=== PATIENT | female | born 1965 | race African-American/Black ===

== ENCOUNTER 2022-04-29 21:08 | Emergency (ER) | payer SELFPAY ==
[~2022-04-29] VITALS: Ht 160 cm; Wt 106.9 kg
[2022-04-29] MEDS ORDERED: [UNRECOGNIZED DRUG - OTHER] PO (21:24)
[2022-04-29] MEDS ORDERED: CAND8TAB10 PO (21:24)
[2022-04-29] MEDS ORDERED: NF-ESOM40C PO (21:24)
[2022-04-29] MEDS ORDERED: RIVA20TA PO (21:24)
--- NOTE | 2022-04-29 21:31 | ED Abdominal Pain ---
General Chief Complaint: Rect Problems Stated Complaint: BLOODY STOOL Nursing Triage Note: C/O LIGHT PINK BLOODY STOOLS X1 DAY. ON XARLATO Source of Information: Patient Exam Limitations: No Limitations History of Present Illness Date Seen by Provider: Apr 29, 2022 Time Seen by Provider: 21:29 Initial Comments Patient is a 56-year-old female who presents ED with bloody stools. Symptoms started yesterday. She reports 2-3 episodes of bright red-pink stool. She notices after a bowel movement in the toilet that looks pink. She is currently on Xarelto with a history of DVT several years ago. History of appendectomy, hysterectomy and C-sections. She had internal hemorrhoids banded 1 year ago. She denies of any dark tarry stool, vomiting, nausea or significant abdominal discomfort. Patient is from [facility]. Recently came to the [facility] to see family. Denies of any chest pain, fever, cough, shortness of breath, sore throat, ear pain, visual changes. Denies of excessive NSAID use. No urinary symptoms. Allergies and Home Medications Allergies Coded Allergies: No Known Drug Allergies (Unverified , 04/29/22) Patient Home Medication List Home Medication List Reviewed: Yes Candesartan Cilexetil (Atacand) 8 Mg Tablet, 8 MG PO, (Reported) Entered as Reported by: TC CHACON on 04/29/222123 Last Action: New Order Esomeprazole Magnesium (Nexium) 40 Mg Cap, 40 MG PO, (Reported) Entered as Reported by: TC CHACON on 04/29/222123 Last Action: New Order Rivaroxaban (Xarelto) 20 Mg Tablet, 20 MG PO, (Reported) Entered as Reported by: TC CHACON on 04/29/222123 Last Action: New Order [Airtal] , 100 MG PO DAILY, (Reported) Entered as Reported by: TC CHACON on 04/29/222123 Last Action: New Order Review of Systems Review of Systems Constitutional: No chills, No diaphoresis EENTM: No Blurred Vision, No Double Vision, No Eye Pain Gastrointestinal: Abdominal Pain; Denies Nausea; Rectal Bleeding; Denies Vomiting Genitourinary: Denies Burning, Denies Discharge Musculoskeletal: No back pain, No joint pain Skin: No change in color, No change in hair/nails Psychiatric/Neurological: Denies Depressed All Other Systems Reviewed Negative Unless Noted: Yes Past Qizwcmj-Kvrcyj-Bfrtcc Hx Patient Social History Tobacco Use?: No Substance use?: No Alcohol Use?: No Pt feels they are or have been: No Past Medical History Surgery/Hospitalization HX: HEMMORHOIDECTOMY, APPY, HYSTERECTOMY, C-SECT DVT, PE, HTN, ARTHRITIS Physical Exam Vital Signs Vital Signs - First Documented 04/29/22 21:24 Temp 36.0 Pulse 102 Resp 18 B/P (MAP) 166/82 (110) Pulse Ox 97 O2 Delivery Room Air Capillary Refill : Less Than 3 Seconds Height/Weight/BMI Height: '" Weight: lbs. oz. kg; 41.00 BMI Method: General Appearance: WD/WN, no apparent distress HEENT: PERRL/EOMI, normal ENT inspection, TMs normal, pharynx normal Neck: non-tender, full range of motion, supple, normal inspection Respiratory: chest non-tender, lungs clear, normal breath sounds, no respiratory distress, no accessory muscle use Cardiovascular: regular rate, rhythm, no edema, no gallop, no JVD Gastrointestinal: normal bowel sounds, non tender, soft, no organomegaly Genital/Rectal: heme positive stool, other (Normal rectal tone. No palpable abscess, obvious hemorrhoids. 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, no motor/sensory deficits, alert, normal mood/affect, oriented x 3 Skin: normal color, warm/dry Progress/Results/Core Measures Results/Orders Lab Results Laboratory Tests Test 04/29/22 21:33 04/29/22 21:39 Range/Units White Blood Count 8.1 4.3-11.0 10^3/uL Red Blood Count 4.67 3.80-5.11 10^6/uL Hemoglobin 11.8 11.5-16.0 g/dL Hematocrit 39 35-52 % Mean Corpuscular Volume 82 80-99 fL Mean Corpuscular Hemoglobin 25 25-34 pg Mean Corpuscular Hemoglobin Concent 31 L 32-36 g/dL Red Cell Distribution Width 17.3 H 10.0-14.5 % Platelet Count 351 130-400 10^3/uL Mean Platelet Volume 10.4 9.0-12.2 fL Immature Granulocyte % (Auto) 0 % Neutrophils (%) (Auto) 54 42-75 % Lymphocytes (%) (Auto) 35 12-44 % Monocytes (%) (Auto) 8 0-12 % Eosinophils (%) (Auto) 2 0-10 % Basophils (%) (Auto) 0 0-10 % Neutrophils # (Auto) 4.4 1.8-7.8 10^3/uL Lymphocytes # (Auto) 2.8 1.0-4.0 10^3/uL Monocytes # (Auto) 0.7 0.0-1.0 10^3/uL Eosinophils # (Auto) 0.2 0.0-0.3 10^3/uL Basophils # (Auto) 0.0 0.0-0.1 10^3/uL Immature Granulocyte # (Auto) 0.0 0.0-0.1 10^3/uL Prothrombin Time 13.6 12.2-14.7 SEC INR Comment 1.0 0.8-1.4 Activated Partial Thromboplast Time 33 24-35 SEC Sodium Level 142 135-145 MMOL/L Potassium Level 4.0 3.6-5.0 MMOL/L Chloride Level 105 98-107 MMOL/L Carbon Dioxide Level 25 21-32 MMOL/L Anion Gap 12 5-14 MMOL/L Blood Urea Nitrogen 10 7-18 MG/DL Creatinine 0.63 0.60-1.30 MG/DL Estimat Glomerular Filtration Rate 104 BUN/Creatinine Ratio 16 Glucose Level 118 H 70-105 MG/DL Calcium Level 9.4 8.5-10.1 MG/DL Corrected Calcium 9.4 8.5-10.1 MG/DL Total Bilirubin 0.3 0.1-1.0 MG/DL Aspartate Amino Transf (AST/SGOT) 11 5-34 U/L Alanine Aminotransferase (ALT/SGPT) 9 0-55 U/L Alkaline Phosphatase 90 40-136 U/L Total Protein 7.9 6.4-8.2 GM/DL Albumin 4.0 3.2-4.5 GM/DL Urine Color YELLOW Urine Clarity CLEAR Urine pH 5.5 5-9 Urine Specific Arabi 1.025 H 1.016-1.022 Urine Protein NEGATIVE NEGATIVE Urine Glucose (UA) NEGATIVE NEGATIVE Urine Ketones NEGATIVE NEGATIVE Urine Nitrite NEGATIVE NEGATIVE Urine Bilirubin NEGATIVE NEGATIVE Urine Urobilinogen 0.2 < = 1.0 MG/DL Urine Leukocyte Esterase NEGATIVE NEGATIVE Urine RBC (Auto) NEGATIVE NEGATIVE Urine RBC 0-2 /HPF Urine WBC NONE /HPF Urine Squamous Epithelial Cells 2-5 /HPF Urine Crystals NONE /LPF Urine Bacteria FEW H /HPF Urine Casts NONE /LPF Urine Mucus SMALL H /LPF Urine Culture Indicated YES My Orders Orders - RACIEL TELLES Cbc With Automated Diff (04/29/22 21:26) Comprehensive Metabolic Panel (04/29/22:) Partial Thromboplastin Time (04/29/22:) Protime With Inr (04/29/22:) Ct Abdomen/Pelvis W (04/29/22:) Iv/Invasive Line Insertion .IV start (04/29/22 21:27) Urinalysis (04/29/22 21:31) Iohexol Injection (Omnipaque 350 Mg/Ml 1 (04/29/22 21:45) Received Contrast (Hold Metformin- Contr (04/29/22 21:45) Sodium Chloride Flush (Catheter Flush Sy (04/29/22 21:45) Ns (Ivpb) (Sodium Chloride 0.9% Ivpb Bag (04/29/22 21:45) Urine Culture (04/29/22 21:39) Medications Given in ED Vital Signs/I&O 04/29/22 04/29/22 21:24 22:45 Temp 36.0 36.0 Pulse 102 82 Resp 18 16 B/P (MAP) 166/82 (110) 138/60 Pulse Ox 97 97 O2 Delivery Room Air Room Air Blood Pressure Mean: 110 Fecal Occult: Negative Departure Communication (PCP) Hemoccult was slightly positive. No gross blood noted on rectal exam. No rectal mass or severe tenderness on palpation. No evidence of hemorrhoids. Currently on Xarelto with a history of PE several years ago. Patient lab work was otherwise unremarkable. Normal hemoglobin and coags. Urinalysis was negative for infection. CT abdomen pelvis was negative for acute abnormality. Concern for more of a lower GI bleed. History of internal hemorrhoids which may be result of the bleeding. Due to reassuring lab work and no profuse grossly bleeding discussed potentially stopping her Xarelto for 2 to 3 days and continue with loose bowel movements. If any worsening symptoms such as weakness, gr ossly bloody stools return back to ED for further evaluation and lab work. Patient agrees with plan of action. She states she had colonoscopy last year for cancer. Denies any weight loss, weight changes, fever. CT scan of the abdomen pelvis did not note any rectal mass or evidence of diverticulitis. She has no upper abdominal pain, history of ulcers, GERD.. Impression Primary Impression: Rectal bleeding Disposition: HOME, SELF-CARE Condition: Stable Departure-Patient Inst. Decision time for Depature: 22:36 Referrals: [facility] – [place] NO,LOCAL PHYSICIAN (PCP) Primary Care Physician Patient Instructions: Bloody Stools, Adult (DC) Add. Discharge Instructions: Discussed holding your Xarelto for a few days. If continue mild bleeding continue monitoring. If symptoms worse such as heavy bleeding, weakness to return back to ED for further evaluation. All discharge instructions reviewed with patient and/or family. Voiced understa nding. RACIEL TELLES Apr 29, 2022 21:31
[2022-04-29 21:43] LABS: BASOPHILS % (AUTO) 0 % (0-10); EOSINOPHILS # (AUTO) 0.2 10^3/uL (0.0-0.3); EOSINOPHILS % (AUTO) 2 % (0-10); HEMATOCRIT 39 % (35-52); HEMOGLOBIN 11.8 g/dL (11.5-16.0); LYMPHOCYTES # (AUTO) 2.8 10^3/uL (1.0-4.0); LYMPHOCYTES % (AUTO) 35 % (12-44); MEAN CORPUSCULAR HEMOGLOBIN 25 pg (25-34); MEAN CORPUSCULAR HGB CONC 31 g/dL (32-36); MEAN CORPUSCULAR VOLUME 82 fL (80-99); MEAN PLATELET VOLUME 10.4 fL (9.0-12.2); MONOCYTES # (AUTO) 0.7 10^3/uL (0.0-1.0); MONOCYTES % (AUTO) 8 % (0-12); NEUTROPHILS # (AUTO) 4.4 10^3/uL (1.8-7.8); NEUTROPHILS % (AUTO) 54 % (42-75); PLATELET COUNT 351 10^3/uL (130-400); WHITE BLOOD COUNT 8.1 10^3/uL (4.3-11.0)
[2022-04-29] MEDS ORDERED: HOLD METFORMIN - RECEIVED CONTRAST 20 ML VIAL IV SCH (21:45)
[2022-04-29] MEDS ORDERED: IOHEXOL 350 MG/ML 100 ML (OMNIPAQUE 350) VIAL IV ONE (21:45)
[2022-04-29] MEDS ORDERED: NS 100 ML (IVPB) BAG IV ONE (21:45)
[2022-04-29] MEDS ORDERED: CATHETER FLUSH 10 ML SYR IV PRN (21:45)
[2022-04-29 21:47] LABS: BILIRUBIN,URINE NEGATIVE (NEGATIVE); CLARITY,URINE CLEAR; COLOR,URINE YELLOW; GLUCOSE, URINE (UA) NEGATIVE (NEGATIVE); KETONES,URINE NEGATIVE (NEGATIVE); LEUKOCYTE ESTERASE ,URINE NEGATIVE (NEGATIVE); NITRITE,URINE NEGATIVE (NEGATIVE); PH,URINE 5.5 (5-9); PROTEIN,URINE NEGATIVE (NEGATIVE)
[2022-04-29 21:55] LABS: CALCIUM 9.4 MG/DL (8.5-10.1)
[2022-04-29 21:57] LABS: PROTHROMBIN TIME PATIENT 13.6 SEC (12.2-14.7); TOTAL PROTEIN 7.9 GM/DL (6.4-8.2)
[2022-04-29 21:58] LABS: BILIRUBIN,TOTAL 0.3 MG/DL (0.1-1.0)
[2022-04-29 22:00] LABS: CREATININE SERUM 0.63 MG/DL (0.60-1.30)
[2022-04-29 22:00] LABS: BACTERIA,URINE FEW /HPF; RBC,URINE 0-2 /HPF
--- NOTE | 2022-04-29 22:23 | Diagnostic Imaging Report ---
EXAMINATION: CT abdomen and pelvis with intravenous contrast. TECHNIQUE: Multiple contiguous axial images were obtained through the abdomen and pelvis after the uneventful administration of intravenous contrast. All CT scans use one or more of the following dose optimizing techniques: automated exposure control, MA and/or KvP adjustment based on patient size and exam type or iterative reconstruction. HISTORY: Left lower quadrant pain. COMPARISON: None available. FINDINGS: Limited views of the lower thorax are unremarkable. The liver is normal without focal lesion. There is no biliary ductal dilation. Gallbladder is normal. Pancreas is normal. Spleen is normal. Adrenal glands are normal. The kidneys are normal. There is no hydronephrosis. Urinary bladder is normal. Bowel is normal in caliber without obstruction or inflammation. No free fluid or air. No abdominal or pelvic lymphadenopathy. Aorta is normal in caliber without aneurysm. There are no suspicious osseus lesions. IMPRESSION: No acute abnormality in the abdomen or pelvis. Dictated by: Dictated on workstation # [id number]
[2022-04-29 22:45] VITALS: BP 138/60
== END 2022-04-29 22:47 | disposition home or self-care (01) ==
LOC: ER 21:11
DX: K62.5 Hemorrhage of anus and rectum (principal); Z86.718 Personal history of other venous thrombosis and embolism; Z98.890 Other specified postprocedural states; Z79.01 Long term (current) use of anticoagulants
CPT/HCPCS: 36415; 74177; 80053; 81000; 82274; 85025; 85610; 85730; 87088